=== PATIENT | female | born 1995 | race Caucasian/White ===

== ENCOUNTER 2018-06-23 08:20 | Emergency (ER) | payer MEDICAID ==
[~2018-06-23] VITALS: Ht 154.9 cm; Wt 46.3 kg
[2018-06-23 08:30] VITALS: BP 102/63; Ht 154.9 cm; Wt 46.3 kg
== END 2018-06-23 11:05 | disposition home or self-care (01) ==
LOC: ED 08:20
DX: J03.90 Acute tonsillitis, unspecified (principal)
CPT/HCPCS: J1100

== ENCOUNTER 2019-12-13 10:58 | Emergency (ER) | payer MEDICAID ==
[~2019-12-13] VITALS: Ht 157.5 cm; Wt 44.2 kg
[2019-12-13 11:09] VITALS: Ht 157.5 cm; Wt 44.2 kg
[2019-12-13 11:56] LABS: microscopic required? YES; urine erythrocyte NEGATIVE (NEGATIVE)
[2019-12-13 14:21] VITALS: BP 110/71
== END 2019-12-13 13:30 | disposition home or self-care (01) ==
LOC: ED 10:58
PROVIDERS: Emergency Medicine
DX: O99.511 Diseases of the respiratory system complicating pregnancy, first trimester (principal); J10.1 Influenza due to other identified influenza virus with other respiratory manifestations; Z3A.00 Weeks of gestation of pregnancy not specified
CPT/HCPCS: 87804; J8597

== ENCOUNTER 2020-01-12 17:22 | Emergency (ER) | payer OTHER, MEDICAID ==
[~2020-01-12] VITALS: Ht 154.9 cm; Wt 45.4 kg
[2020-01-12 17:28] VITALS: Ht 154.9 cm; Wt 45.4 kg
[2020-01-12 19:18] VITALS: BP 110/76
== END 2020-01-12 19:20 | disposition home or self-care (01) ==
LOC: ED 17:22
DX: O9A.211 Injury, poisoning and certain other consequences of external causes complicating pregnancy, first trimester (principal); S16.1XXA Strain of muscle, fascia and tendon at neck level, initial encounter; Z3A.12 12 weeks gestation of pregnancy; V49.49XA Driver injured in collision with other motor vehicles in traffic accident, initial encounter; Y93.I9 Activity, other involving external motion; Y92.413 State road as the place of occurrence of the external cause; Y99.8 Other external cause status
CPT/HCPCS: Q0092